=== PATIENT | male | born 1950 | race Caucasian/White ===

== ENCOUNTER 2018-03-09 09:47 | Emergency (ER) | payer BC ==
--- NOTE | 2018-03-09 10:30 | UC ---
Knee Pain HPI - History of Current Complaint Chief Complaint: UCLowerExtremity Stated Complaint: KNEE PAIN Time Seen by Provider: 03/09/18 10:30 Pain Intensity: 6 - Allergies/Home Medications Allergies/Adverse Reactions: Allergies Allergy/AdvReac Type Severity Reaction Status Date / Time food allergies Allergy rash Uncoded 03/09/18 10:06 itchiness Home Medications: Home Medications Tamsulosin CAP* [Flomax CAP*] 0.4 mg PO DAILY 03/09/18 [History Confirmed ] PMH/Surg Hx/FS Hx/Imm Hx - Surgical History Surgical History: None Surgery Procedure, Year, and Place: TONSILS AGE 6. FINGERTIP AMPUTATION LEFT RING FINGER 2013 - Social History Alcohol Use: Occasionally Substance Use Type: None Smoking Status (MU): Former Smoker Physical Exam Vital Signs: Initial Vital Signs Temp 98 F 03/09/18 10:02 Pulse 82 03/09/18 10:02 Resp 16 03/09/18 10:02 BP 124/70 03/09/18 10:02 Pulse Ox 100 03/09/18 10:02 Discharge - Discharge Plan Referrals: Yariel Narayan MD [Primary Care Provider] -
--- NOTE | 2018-03-09 11:16 | UC ---
Knee Pain HPI - HPI Summary HPI Summary: PATIENT HAS HAD PROGRESSIVELY WORSENING RIGHT KNEE PAIN OVER THE PAST 4-6 WEEKS. PAIN HAS BEEN MOSTLY IN THE POSTERIOR AND LATERAL ASPECT OF HIS KNEE. HE 'S ALSO HAD JOINT PAIN IN HIS SHOULDERS, ELBOWS AND BACK OVER THE PAST FEW MONTHS. HE IS AN ACTIVE PERSON AND DOES A LOT OF OUTDOOR ACTIVITY. HE IS CONCERNED ABOUT LYME DISEASE. NO FEVER, HEADACHE, FATIGUE. NO RASH. RIGHT KNEE HAS BECOME INCREASINGLY PAINFUL AND SWOLLEN OVER THE PAST COUPLE OF DAYS. HE DENIES ANY DISCRETE TRAUMA TO THE AREA. - History of Current Complaint Chief Complaint: UCLowerExtremity Stated Complaint: KNEE PAIN Time Seen by Provider: 03/09/18 10:30 Hx Obtained From: Patient Onset/Duration: Gradual Onset, Lasting Weeks, Still Present Severity Initially: Moderate Severity Currently: Moderate Pain Intensity: 6 Pain Scale Used: 0-10 Numeric Character: Dull, Aching Aggravating Factor(s): Movement, Weight Bearing Alleviating Factor(s): Rest Associated Signs And Symptoms: Positive: Swelling Able to Bear Weight: Yes - Allergies/Home Medications Allergies/Adverse Reactions: Allergies Allergy/AdvReac Type Severity Reaction Status Date / Time food allergies Allergy rash Uncoded 03/09/18 10:06 itchiness Home Medications: Home Medications Tamsulosin CAP* [Flomax CAP*] 0.4 mg PO DAILY 03/09/18 [History Confirmed ] PMH/Surg Hx/FS Hx/Imm Hx Other Cancer History: BLADDER CANCER - Surgical History Surgical History: None Surgery Procedure, Year, and Place: TONSILS AGE 6. FINGERTIP AMPUTATION LEFT RING FINGER 2013 - Family History Known Family History: Positive: Hypertension - Social History Alcohol Use: Occasionally Substance Use Type: None Smoking Status (MU): Former Smoker Review of Systems Constitutional: Negative Skin: Negative Respiratory: Negative Cardiovascular: Negative Gastrointestinal: Negative Musculoskeletal: Arthralgia, Decreased ROM, Edema All Other Systems Reviewed And Are Negative: Yes Physical Exam Triage Information Reviewed: Yes Appearance: Well-Appearing, No Pain Distress, Well-Nourished Vital Signs: Initial Vital Signs Temp 98 F 03/09/18 10:02 Pulse 82 03/09/18 10:02 Resp 16 03/09/18 10:02 BP 124/70 03/09/18 10:02 Pulse Ox 100 03/09/18 10:02 Vital Signs Reviewed: Yes Eyes: Positive: Conjunctiva Clear ENT: Positive: Hearing grossly normal Neck: Positive: Supple Respiratory: Positive: No respiratory distress, No accessory muscle use Cardiovascular: Positive: Pulses Normal Abdomen Description: Positive: Soft Musculoskeletal: Positive: ROM Limited @ - RIGHT KNEE, Edema @ - RIGHT KNEE PAIN , Other: - RIGHT KNEE: NO JOINT LINE TENDERNESS OR TENDERNESS OVER ANY BONY PROMINENCES. MCL AND LCL INTACT TO STRESS TESTING. NEG LACHMANS. NEG DRAWERS SIGNS. NEG MCMURRAYS. NO TENDERNESS OVER PATELLAR LIGAMENT OR QUADRICEPS TENDON. HAS PAIN POSTERIORLY AND DECREASED ROM (FLEXION). MODERATE EFFUSION. WARM TO TOUCH Neurological: Positive: Alert Psychological: Positive: Age Appropriate Behavior Skin: Negative: rashes Diagnostics - Radiology RIGHT KNEE XRAY Xray Interpretation: No Acute Changes Radiology Interpretation Completed By: Radiologist No standard instances Xray Interpretation: Positive (See Comments) - POPLITEAL FOSSA CYST Radiology Interpretation Completed By: Radiologist Knee Pain Course/Dx - Course Course Of Treatment: RIGHT KNEE X-RAY TODAY UNREMARKABLE. ULTRASOUND POSITIVE FOR A POPLITEAL FOSSA CYST. PATIENT WILL FOLLOW-UP WITH ORTHOPEDICS FOR FURTHER MANAGEMENT. IT IS POSSIBLE THAT HE HAS SOME INTERNAL KNEE INJURY THAT HAS CONTRIBUTED TO THIS CONDITION. NSAIDS NEEDED FOR DISCOMFORT. PATIENT IS CONCERNED ABOUT LYME DISEASE GIVEN THAT HE HAS HAD JOINT PAINS DIFFUSELY OVER THE PAST FEW MONTHS. STATES HE HAD A FRIEND WHO HAD LYME DISEASE WHO PRESENTED SIMILARLY. LYME SEROLOGY DRAWN TODAY. - Differential Dx/Diagnosis Provider Diagnoses: 1. RIGHT KNEE POPLITEAL FOSSA CYST. 2. SWOLLEN RIGHT KNEE Discharge - Sign-Out/Discharge Documenting (check all that apply): Discharge/Admit/Transfer - Discharge Plan Condition: Stable Disposition: HOME Patient Education Materials: Bakers Cyst (ED), Swollen Knee Joint (ED) Referrals: Maria M Kulkarni MD [Medical Doctor] - 2 Weeks Yariel Narayan MD [Primary Care Provider] - If Needed Additional Instructions: POPLITEAL (MORRISON'S) CYST SEEN ON ULTRASOUND TODAY. XRAY UNREMARKABLE. What is a Bakers cyst? A Bakers cyst is a fluid-filled sac behind the knee. This cyst can cause symptoms, such as pain or knee stiffness. The medical term for a Bakers cyst is popliteal cyst. What are the symptoms of a Bakers cyst? Bakers cysts do not always cause symptoms. When they do, the symptoms can include: - Pain in the back of the knee - Knee stiffness - Swelling or a bulge at the back of the knee, especially when the leg is straight People often find that their symptoms get worse if they stand for a long time or bend their knee too far. Symptoms and swelling sometimes also get worse with activity. In some cases, Bakers cysts tear open and leak their fluid onto nearby tissues. If that happens, symptoms can include calf swelling and redness, or bruising below the knee. Should I see a doctor or nurse? Yes, if you have the symptoms described above , see your doctor or nurse. Not all swelling behind the knee is due to a Morrison s cyst. Your doctor or nurse can look at your knee and talk to you about your symptoms to decide what to do next. Will I need tests? Probably not. If you have a Bakers cyst, your doctor or nurse will probably be able to tell just by doing an exam. But if he or she is not sure, you might need an imaging test, such as an X-ray or an ultrasound. ( An ultrasound uses sound waves to create a picture of the inside of your body.) How is a Bakers cyst treated? The main treatment is an injection of steroid medicines directly into the knee. These steroids are not the same ones athletes take to build muscle. These steroids reduce swelling and inflammation. If treatment with steroids medicines does not work, other (much less used) options include: - Draining the cyst with a needle - Surgery to remove the cyst Is there anything I can do on my own to feel better? Maybe. Your doctor or nurse might suggest resting the knee and taking medicines called NSAIDs for 1 to 2 weeks before he or she orders an imaging test or suggests a knee injection. Some examples of NSAIDs include ibuprofen and naprosyn. POSSIBLE INTERNAL KNEE INJURY: The examiner of your injured knee suspects an internal injury to the cartilage or internal ligaments. This must be further investigated by an technical customer support specialist. The knee should be protected, ice packed, and elevated while awaiting your follow-up exam by the orthopedist. If there is severe swelling, severe pain, or any new symptoms while awaiting your exam, you should call the orthopedist. (If he/she is unavailable, call us or return for re-examination.) REST, ICE, COMPRESS, ELEVATE. NSAIDS NEEDED FOR DISCOMFORT. FOLLOW-UP WITH ORTHO. LYME SEROLOGY DRAWN TODAY. - Billing Disposition and Condition Condition: STABLE Disposition: Home
--- NOTE | 2018-03-09 11:54 | RAD ---
INDICATION: Right knee injury COMPARISON: None TECHNIQUE: AP, lateral, tunnel, and sunrise views were obtained. FINDINGS: The bony structures, joint spaces, and soft tissues are normal for age. IMPRESSION: NEGATIVE EXAMINATION.
[2018-03-09 12:12] VITALS: BP 121/63
--- NOTE | 2018-03-09 12:44 | RAD ---
INDICATION: Right posterior knee pain COMPARISON: None TECHNIQUE: Transverse and longitudinal scans of the right popliteal fossa were performed utilizing grayscale and color Doppler imaging. FINDINGS: There is a popliteal fossa cyst measuring 2.6 x 1.1 x 2.6 cm Limited imaging of the vascular structures are normal. IMPRESSION:POPLITEAL FOSSA CYST.
== END 2018-03-09 13:38 | disposition home or self-care (01) ==
LOC: UCEAST 09:47
DX: M71.21 Synovial cyst of popliteal space [Baker], right knee (principal); M25.461 Effusion, right knee; Z91.018 Allergy to other foods; Z87.891 Personal history of nicotine dependence
CPT/HCPCS: 86617; 86618; 99211; G0463